=== PATIENT | male | born 1960 | race Caucasian/White ===

== ENCOUNTER 2018-10-13 14:38 | Emergency (ER) | payer MEDICAID ==
[~2018-10-13] VITALS: Ht 180.3 cm; Wt 78.0 kg
[2018-10-13 15:13] VITALS: BP 134/15
[2018-10-13] MEDS ORDERED: SULF1TAB49 PO (16:24)
[2018-10-13] MEDS ORDERED: CEPH250T PO (16:24)
== END 2018-10-13 16:47 | disposition home or self-care (01) ==
LOC: ER 14:39
DX: L03.114 Cellulitis of left upper limb (principal); Z88.6 Allergy status to analgesic agent
CPT/HCPCS: 73120; 99283